=== PATIENT | female | born 2000 | race Caucasian/White ===

== ENCOUNTER 2023-02-14 14:27 | Emergency (ER) | payer OTHER, BC ==
[~2023-02-14] VITALS: Ht 167.6 cm; Wt 74.8 kg
[2023-02-14 14:36] VITALS: BP_SYST 122; PULSE 84; RESP 18; TEMP 98.3; O2SAT 98
== END 2023-02-14 16:45 | disposition home or self-care (01) ==
LOC: SED 14:27
DX: S39.012A Strain of muscle, fascia and tendon of lower back, initial encounter (principal); Z79.899 Other long term (current) drug therapy; V89.2XXA Person injured in unspecified motor-vehicle accident, traffic, initial encounter; Y93.89 Activity, other specified; Y92.89 Other specified places as the place of occurrence of the external cause; Y99.8 Other external cause status
CPT/HCPCS: 99281